=== PATIENT | female | born 1990 | race Caucasian/White ===

== ENCOUNTER 2017-06-14 17:55 | Emergency (ER) | payer MEDICAID ==
[2017-06-14 18:33] VITALS: BP 153/95
--- NOTE | 2017-06-14 19:18 | EDM.PDOC ---
ED HPI GENERAL MEDICAL PROBLEM - General Chief Complaint: Gastrointestinal Problem Stated Complaint: ABDOMINAL PAIN Time Seen by Provider: 06/14/17 19:18 Source of Information: Reports: Patient, Old Records, RN Notes Reviewed History Limitations: Reports: No Limitations - History of Present Illness INITIAL COMMENTS - FREE TEXT/NARRATIVE: Here with her alyssa Chief complaint Upper abdominal pain History of present illness 27-year-old female with epigastric abdominal pain onset gradually 3 days ago. Putting pressure on the area makes it feel better, feels better when she is upright worse when she is supine but she's been sleeping okay. Appetite has been decreased. She's had diarrhea about 4 times per day. She's felt hot and cold but no fever. Her reflux symptoms have increased. She took some Tums and she took omeprazole without any relief. She hasn't missed any time from work but her boss told her to get checked because she was walking bent over. She was diagnosed as having peptic ulcer in December, no endoscopy, treated by her symptoms with omeprazole. She's also been diagnosed with reflux. She feels like she's had some abdominal bloating. Does not believe that she is . She has been amenorrheic ever since she quit taking Depo-Provera year ago with only 1. In November this year. She was on Depo-Provera for 10 years. abdom Pain Score (Numeric/FACES): 6 - Related Data Allergies Allergy/AdvReac Type Severity Reaction Status Date / Time No Known Allergies Allergy Verified 06/14/17 18:19 Home Meds: Home Meds Gabapentin 300 mg PO TID 05/12/14 [History] QUEtiapine Fumarate [Quetiapine Fumarate] 150 mg PO BEDTIME 08/14/14 [History] Venlafaxine HCl [Venlafaxine ER] 150 cap PO QAM 03/27/16 [History] Mirtazapine [Remeron] 45 mg PO BEDTIME 06/14/17 [History] Omeprazole 20 mg PO DAILY 06/14/17 [History] Propranolol [Inderal] 20 mg PO BID 06/14/17 [History] Past Medical History Gastrointestinal History: Reports: [employer] History: Reports: Psychiatric History: Reports: Addiction, Anxiety, Depression, Psych Hospitalization(s), Suicide Attempt - Past Surgical History Female Surgical History: Reports: Section Social & Family History - Tobacco Use Smoking Status *Q: Light Tobacco Smoker Years of Tobacco use: 12 Packs/Tins Daily: 1 Used Tobacco, but Quit: No Month Tobacco Last Used: june Second Hand Smoke Exposure: No - Alcohol Use Days Per Week of Alcohol Use: 7 Number of Drinks Per Day: 1 Total Drinks Per Week: 7 - Recreational Drug Use Recreational Drug Use: No Drug Use in Last 12 Months: Yes Recreational Drug Type: Reports: Methamphetamine Recreational Drug Use Frequency: Not Used In Over 3 Months Recreational Drug Last Use: t-4 ED ROS GENERAL - Review of Systems Review Of Systems: See Below Constitutional: Reports: Chills, Malaise, Decreased Appetite. Denies: Fever, Diaphoresis HEENT: Reports: No Symptoms Respiratory: Reports: No Symptoms Cardiovascular: Reports: No Symptoms GI/Abdominal: Reports: Abdominal Pain, Diarrhea, Decreased Appetite, Nausea. Denies: Vomiting : Reports: Other (Prolonged amenorrhea) Musculoskeletal: Reports: No Symptoms Skin: Reports: No Symptoms Neurological: Reports: No Symptoms Psychiatric: Reports: No Symptoms ED EXAM, GI/ABD - Physical Exam Exam: See Below Exam Limited By: No Limitations General Appearance: Alert, Mild Distress, Other (Appears well, mild elevation blood pressure otherwise vital signs normal, no difficulty speaking or breathing ) Eyes: Bilateral: Normal Appearance Throat/Mouth: Normal Inspection, Normal Voice Head: Atraumatic, Normocephalic Neck: Normal Inspection, Non-Tender Respiratory/Chest: No Respiratory Distress, Lungs Clear, Normal Breath Sounds, No Accessory Muscle Use Cardiovascular: Normal Peripheral Pulses, Regular Rate, Rhythm GI/Abdominal Exam: Normal Bowel Sounds, Soft, No Distention, No Mass, Tender ( Epigastric area), Other (Negative Trevino's). No: Guarding, Rebound Extremities: Normal Inspection Neurological: Alert, Oriented, Normal Cognition Psychiatric: Normal Affect Skin Exam: Warm, Dry, Intact, Normal Color, No Rash Lymphatic: No Adenopathy Course - Vital Signs Last Recorded V/S: Last Vital Signs Temp 37.2 C 06/14/17 18:26 Pulse 98 06/14/17 18:26 Resp 16 06/14/17 18:26 BP 153/95 H 06/14/17 18:26 Pulse Ox 99 06/14/17 18:26 - Orders/Labs/Meds Orders: Active Orders 24 hr Category Date Time Status Peripheral IV Care [RC] . DIRECTED Care 06/14/17 19:27 Active Peripheral IV Insertion Adult [OM.PC] Routine Oth 06/14/17 19:26 Ordered Labs: Laboratory Tests 06/14/17 06/14/17 Range/Units 19:26 19:26 WBC 11.0 (4.5-11.0) K/uL RBC 4.60 (3.30-5.50) M/uL Hgb 14.4 (12.0-15.0) g/dL Hct 40.6 (36.0-48.0) % MCV 88 (80-98) fL MCH 31 (27-31) pg MCHC 36 (32-36) % Plt Count 295 (150-400) K/uL Sodium 138 L (140-148) mmol/L Potassium 3.7 (3.6-5.2) mmol/L Chloride 102 (100-108) mmol/L Carbon Dioxide 29 (21-32) mmol/L Anion Gap 10.7 (5.0-14.0) mmol/L BUN 20 H D (7-18) mg/dL Creatinine 0.8 (0.6-1.0) mg/dL Est Cr Clr Drug Dosing 82.06 mL/min Estimated GFR (MDRD) > 60 (>60) Glucose 102 (74-106) mg/dL Calcium 9.6 D (8.5-10.1) mg/dL Total Bilirubin 0.3 (0.2-1.0) mg/dL AST 19 (15-37) U/L ALT 22 (12-78) U/L Alkaline Phosphatase 104 (46-116) U/L Total Protein 8.4 H (6.4-8.2) g/dL Albumin 4.0 (3.4-5.0) g/dL Globulin 4.4 H (2.3-3.5) g/dL Albumin/Globulin Ratio 0.9 L (1.2-2.2) Lipase 155 (73-393) U/L Meds: Medications Discontinued Medications Generic Name Dose Route Start Last Admin Trade Name Freq PRN Reason Stop Dose Admin Sodium Chloride 1,000 mls @ 250 mls/hr 06/14/17 19:30 06/14/17 20:30 Normal Saline IV 250 mls/hr ASDIRECTED ARNAUD Administration Ketorolac Tromethamine 15 mg 06/14/17 19:27 06/14/17 20:30 Toradol IVPUSH 06/14/17 19:28 15 mg ONETIME ONE Administration Ondansetron HCl 4 mg 06/14/17 19:27 06/14/17 20:34 Zofran IVPUSH 06/14/17 19:28 4 mg ONETIME ONE Administration Sodium Chloride 10 ml 06/14/17 19:27 Saline Flush FLUSH ASDIRECTED PRN Keep Vein Open - Re-Assessments/Exams Free Text/Narrative Re-Assessment/Exam: 06/15/17 01:56 27-year-old female with 3 days epigastric pain and diarrhea. Differential diagnosis includes biliary colic colitis gastroneuritis dyspepsia, peptic ulcer and others. Intravenous saline, Toradol 15 mg and ondansetron 4 mg with improvement in her symptoms. Drink plenty of fluids Follow-up with primary care if persisting symptoms and follow-up with primary care to discuss/investigate and treat her ongoing amenorrhea Departure - Departure Time of Disposition: 21:00 Disposition: Home, Self-Care 01 Condition: Good Clinical Impression: Epigastric abdominal pain, Gastroenteritis, Dehydration, mild, Amenorrhea, secondary - Discharge Information Instructions: Viral Gastroenteritis, Adult, [id number], Abdominal Pain, Adult , [id number] Referrals: PCP,None [Primary Care Provider] - Forms: ED Department Discharge Additional Instructions: Please make an appointment to get rechecked by your doctor within 1 week. Appointment can be canceled if your symptoms improve. You have some dehydration, make sure you drink plenty of fluids. Return to emergency if severe pain, repeated vomiting, fever, or other new symptoms - My Orders Last 24 Hours: My Active Orders 06/14/17 19:26 Peripheral IV Insertion Adult [OM.PC] Routine 06/14/17 19:27 Peripheral IV Care [RC] . DIRECTED - Assessment/Plan Last 24 Hours: My Active Orders 06/14/17 19:26 Peripheral IV Insertion Adult [OM.PC] Routine 06/14/17 19:27 Peripheral IV Care [RC] . DIRECTED
[2017-06-14] MEDS ORDERED: Ondansetron 4 MG/2 ML SDV IVPUSH ONE (19:27)
[2017-06-14] MEDS ORDERED: Ketorolac 30 MG/ML SDV IVPUSH ONE (19:27)
[2017-06-14] MEDS ORDERED: Sodium Chloride 0.9% 10 ML Syringe FLUSH PRN (19:27)
[2017-06-14] MEDS ORDERED: Sodium Chloride 0.9% 1,000 ML IV SCH (19:30)
== END 2017-06-14 21:30 | disposition home or self-care (01) ==
LOC: JP.ED 17:55
DX: K52.9 Noninfective gastroenteritis and colitis, unspecified (principal); E86.0 Dehydration; N91.1 Secondary amenorrhea; F17.210 Nicotine dependence, cigarettes, uncomplicated; K21.9 Gastro-esophageal reflux disease without esophagitis; Z79.899 Other long term (current) drug therapy
CPT/HCPCS: 36415; 80053; 83690; 85027; 96361; 96374; 96375; 99284; J1885; J2405; J7040

== ENCOUNTER 2019-03-09 08:40 | Day surgery (SDC) | payer MEDICAID ==
[2019-03-09] MEDS ORDERED: Sodium Chloride 0.9% 1,000 ML IV SCH (09:30)
[2019-03-09] MEDS ORDERED: Midazolam 1 MG/ML 2 ML SDV ONE (09:51)
[2019-03-09] MEDS ORDERED: Propofol 200 MG/20 ML SDV ONE (09:51)
[2019-03-09] MEDS ORDERED: fentaNYL 100 MCG/2 ML SDV ONE (09:51)
[2019-03-09] MEDS: Sodium Chloride 0.9% 1,000 ML IV SCH (09:58)
[2019-03-09 11:07] VITALS: BP 103/67
--- NOTE | 2019-03-09 14:53 | OR ---
DATE OF PROCEDURE: 03/09/2019 PROCEDURE: EGD with dilatation. BALLOON USED: 45-Kyrgyz. PERCENTAGE NARROWED: Approximately 20%. PREOPERATIVE DIAGNOSES: Dysphagia, nausea, epigastric pain. POSTOPERATIVE DIAGNOSES: Dysphagia, nausea, epigastric pain. RISKS: Risks, benefits, alternatives, and limitations including, but not limited to infection, bleeding, perforation, requirement for dilation, biopsies, and other procedure risks were explained to the patient who wished to proceed. PROCEDURE IN DETAIL: The patient was placed in left lateral decubitus position. The EGD scope was introduced atraumatically to the second part of the duodenum. No evidence of ulceration or duodenitis. Within the stomach itself, there was no evidence of gastritis or ulceration. No significant hiatal hernia. The GE junction did not show any gross abnormalities. The esophagus was normal. A 45-Kyrgyz balloon was introduced and dilated to stage I. No abnormalities noted after dilation. The esophagus was normal. The patient tolerated the procedure well. Fran Rondon MD /[id number]
== END 2019-03-09 11:15 | disposition home or self-care (01) ==
LOC: JP.SDS 08:40
PROVIDERS: ATTEND Surgery
DX: R13.10 Dysphagia, unspecified (principal); R10.13 Epigastric pain; R11.0 Nausea; K21.9 Gastro-esophageal reflux disease without esophagitis; F43.10 Post-traumatic stress disorder, unspecified
CPT/HCPCS: 43249; 81025; J2250; J2704; J3010; J7030

== ENCOUNTER 2023-05-07 22:47 | Emergency (ER) | payer MEDICAID | END 2023-05-07 23:46 | disposition left against medical advice (07) | LOC: JP.ED 22:47 | DX: Z53.21 Procedure and treatment not carried out due to patient leaving prior to being seen by health care provider (principal) ==

== ENCOUNTER 2023-05-12 20:37 | Emergency (ER) | payer MEDICAID ==
[2023-05-12 21:01] VITALS: BP 114/86; PULSE 92
[2023-05-12 21:37] LABS: AMORPHOUS SEDIMENT,URINE NOT SEEN; APPEARANCE,URINE CLOUDY (CLEAR); BACTERIA,URINE MANY; BILIRUBIN,URINE NEGATIVE (NEGATIVE); COLOR,URINE YELLOW (YELLOW); EPITHELIAL CELLS,URINE FEW; GLUCOSE,URINE NEGATIVE (NEGATIVE); KETONES,URINE NEGATIVE (NEGATIVE); LEUKOCYTE ESTERASE,URINE NEGATIVE (NEGATIVE); MUCUS,URINE NOT SEEN; NITRITE,URINE POSITIVE (NEGATIVE); OCCULT BLOOD,URINE TRACE-INTACT (NEGATIVE); PH,URINE 5.5 (5.0-8.0); PROTEIN,URINE TRACE mg/dL (NEGATIVE); RBC,URINE 0-5 (0-5); UROBILINOGEN,URINE 0.2 EU/dL (0.2-1.0)
== END 2023-05-12 21:55 | disposition home or self-care (01) ==
LOC: JP.ED 20:37
DX: T19.2XXA Foreign body in vulva and vagina, initial encounter (principal); N39.0 Urinary tract infection, site not specified; K21.9 Gastro-esophageal reflux disease without esophagitis; Z79.899 Other long term (current) drug therapy
CPT/HCPCS: 81001; 87086; 87088; 87186; 99283

== ENCOUNTER 2025-07-23 23:16 | Emergency (ER) | payer MEDICAID ==
[2025-07-24 00:05] LABS: BASOPHILS ABSOLUTE AUTO 0.04 K/uL (0.00-0.10); BASOPHILS PERCENT AUTO 0.4 % (0.1-1.3); EOSINOPHILS ABSOLUTE AUTO 0.13 K/uL (0.00-0.40); EOSINOPHILS PERCENT AUTO 1.3 % (0.0-5.4); IMMATURE GRAN ABSOLUTE AUTO 0.05 K/uL (0.00-0.23); IMMATURE GRAN PERCENT AUTO 0.5 % (0.0-0.7); LYMPHOCYTES ABSOLUTE AUTO 1.79 K/uL (0.8-3.3); LYMPHOCYTES PERCENT AUTO 17.7 % (11.4-47.7); MONOCYTES ABSOLUTE AUTO 0.99 K/uL (0.20-0.90); MONOCYTES PERCENT AUTO 9.8 % (3.3-12.6); NEUTROPHILS ABSOLUTE AUTO 7.13 K/uL (1.0-7.6); NEUTROPHILS PERCENT AUTO 70.3 % (40.0-78.1); PLATELET COUNT,PLT 291 K/uL (130-375); RED BLOOD CELL COUNT 3.67 M/uL (3.77-5.24); WHITE BLOOD CELL COUNT,WBC 10.1 K/uL (3.2-11.0)
[2025-07-24 00:18] LABS: A/G RATIO 0.8 (1.2-2.2); ALANINE AMINOTRANSFERASE,ALT 18 U/L (12-78); ASPARTATE AMNIOTRANSFERASE,AST 15 U/L (15-37); BILIRUBIN TOTAL 0.4 mg/dL (0.2-1.0); BLOOD UREA NITROGEN,BUN 13 mg/dL (7-18); CARBON DIOXIDE,CO2 29 mmol/L (21-32); CHLORIDE,CL 102 mmol/L (100-108); CREATININE 0.6 mg/dL (0.6-1.0); EST CRCL DRUG DOSING (CG) 101.53 mL/min; ESTIMATED GFR 118 mL/min (>60); GLUCOSE RANDOM 117 mg/dL (74-106); POTASSIUM,K 3.5 mmol/L (3.6-5.2); PROTEIN TOTAL,TP 7.3 g/dL (6.4-8.2); SODIUM,NA 137 mmol/L (140-148)
[2025-07-24] MEDS: Iopamidol 755 Mg/ML 100 ML Bottle IV SCH (00:51)
[2025-07-24] MEDS: Sodium Chloride 0.9% 10 ML Syringe FLUSH PRN (00:52)
[2025-07-24 01:47] VITALS: BP 109/74; PULSE 97
[2025-07-26 16:39] LABS: B. BURGDORFERI IGG IMMUNOBLOT Negative (Negative); B. BURGDORFERI IGM IMMUNOBLOT Positive (Negative)
== END 2025-07-24 01:46 | disposition home or self-care (01) ==
LOC: JP.ED 23:16
DX: A69.22 Other neurologic disorders in Lyme disease (principal); K21.9 Gastro-esophageal reflux disease without esophagitis; F17.200 Nicotine dependence, unspecified, uncomplicated; Z79.899 Other long term (current) drug therapy
CPT/HCPCS: 36415; 70450; 70496; 70498; 80053; 80307; 83605; 85025; 86617; 86618; 93005; 99285; Q9967